=== PATIENT | female | born 1980 | race African-American/Black ===

== ENCOUNTER 2018-09-19 14:01 | Emergency (ER) | payer SELFPAY ==
[~2018-09-19] VITALS: Ht 177.8 cm; Wt 80.0 kg
[~2018-09-19 14:01] MED LIST: IBUP-1542 PO
[2018-09-19 14:09] VITALS: BP 167/65; PULSE 71; RESP 18; Ht 177.8 cm; Wt 80.0 kg
[2018-09-19] MEDS ORDERED: ONDANSETRON 4 MG INJ IV STA (15:02)
[2018-09-19] MEDS ORDERED: SOD CHLORIDE 0.9% 1,000 ML IV STA (15:02)
[2018-09-19] MEDS ORDERED: PROCHLORPERAZINE 10 MG INJ IV STA (15:02)
[2018-09-19] MEDS ORDERED: KETOROLAC 30 MG INJ IV STA (15:02)
[2018-09-19] MEDS ORDERED: IBUP-1542 PO (15:35)
[2018-09-19] MEDS ORDERED: ONDA4TAB14 PO (15:36)
--- NOTE | 2018-09-19 15:41 | ERD ---
ER Documentation Chief Complaint Chief Complaint GARCIA X 2 DAYS HPI This is a 38-year-old female with history of migraine headaches for the past 3 years presents to the ED complaining of an intermittent headache x3 days. Patient states symptoms started after a night of drinking. She states she has 6 out of 10 throbbing pain to her right temporal scalp which migrates to her left temporal scalp. She states she has had 3 episodes of nonbilious, nonbloody emesis. Pain is throbbing in nature. She states today's pain is very similar to her previous migraine headaches, but lasting longer. She has taken [id number] Tylenol and Aleve without any relief. Denies any head trauma. Denies any fevers or chills. Denies any neck pain or neck stiffness. Denies any focal weakness. ROS All systems reviewed and are negative except as per history of present illness. Medications Home Meds Active Scripts Ondansetron (Ondansetron Odt) 4 Mg Tab.rapdis, 4 MG PO Q6H PRN for NAUSEA AND/OR VOMITING, #10 TAB Prov:TORITOIGRANITA SAMANIEGO-C 09/19/18 Ibuprofen* (Motrin*) 600 Mg Tab, 600 MG PO Q6H PRN for PAIN AND OR ELEVATED TEMP, #30 TAB Prov:TORITOIGRIKIANANITA PA-C 09/19/18 Ibuprofen* (Motrin*) 600 Mg Tab, 600 MG PO Q6H PRN for PAIN AND OR ELEVATED TEMP, #30 TAB Prov:TONY TRINH MD 08/30/15 Allergies Allergies: Coded Allergies: No Known Allergy (Unverified , 11/03/15) PMhx/Soc History of Surgery: No Anesthesia Reaction: No Hx Neurological Disorder: No Hx Respiratory Disorders: No Hx Cardiac Disorders: No Hx Psychiatric Problems: No Hx Miscellaneous Medical Probl: No Hx Alcohol Use: Yes (SOCIAL) Hx Substance Use: No Hx Tobacco Use: No Smoking Status: Never smoker FmHx Family History: No diabetes Physical Exam Vitals Vital Signs Date Temp Pulse Resp B/P (MAP) Pulse Ox O2 O2 Flow FiO2 Time Delivery Rate 09/19/18 98.1 71 18 167/65 99 14:09 (99) Physical Exam Const: No acute distress Head: Atraumatic Eyes: Normal Conjunctiva ENT: Normal External Ears, Nose and Mouth. Neck: Full range of motion. No meningismus. Resp: Clear to auscultation bilaterally Cardio: Regular rate and rhythm, no murmurs Abd: Soft, non tender, non distended. Normal bowel sounds Skin: No petechiae or rashes Back: No midline or flank tenderness Ext: No cyanosis, or edema Neuro: M/S: Alert and oriented Face: EOMI, face and pharynx with normal sensation and function Motor: Normal strength throughout Sensation: Normal sensation throughout Speech: Normal Cerebel: Normal coordination Normal gait Psych: Normal Mood and Affect Results 24 hrs Current Medications Medications Dose Sig/Amy Start Time Status Last (Trade) Ordered Route PRN Stop Time Admin Dose Reason Admin Sodium 1,000 ml @ Q1H STAT 09/19/18 09/19/18 Chloride 1,000 mls/hr IV 15:02 09/19/18 15:26 16:01 10 mg ONCE STAT 09/19/18 DC Prochlorperaz IV 15:02 09/19/18 ine 15:04 (Compazine Inj) Ondansetron 4 mg ONCE STAT 09/19/18 DC 09/19/18 HCl (Zofran IV 15:02 09/19/18 15:26 Inj) 15:04 Ketorolac 15 mg ONCE STAT 09/19/18 DC 09/19/18 Tromethamine IV 15:02 09/19/18 15:26 (Toradol) 15:04 Procedures/MDM ED COURSE: The patient was given IV fluids, Zofran, Compazine, Toradol The medication was well tolerated and the patient had market improvement in symptoms. The patient remained stable throughout ED course. MEDICAL DECISION MAKIN-year-old female with history of migraine headaches presents with exacerbation of her headache after night of drinking alcohol. History and physical most consistent with primary headache. Vital signs are stable. No focal neurological deficits on physical exam. Clinical presentation not consistent with subarachnoid hemorrhage, epidural or subdural hematoma, IC mass, CVA, encephalitis or meningitis. Symptoms improved after IV fluids, Zofran, Compazine and Toradol. Patient was discharge home with close follow up and management by PCP in 48 hours. Strict return precautions discussed. PRESCRIPTIONS: Zofran, ibuprofen SPECIALIST FOLLOW UP RECOMMENDED: None Blood Pressure Assessment: Patient's blood pressure was elevated (>120/80) but appears stable without evidence of hypertension emergency or urgency. The patient was counseled about the risks of hypertension and urged to pursue outpatient monitoring and therapy within a week with their primary care physician. Departure Diagnosis: Primary Impression: Migraine headache Migraine type: unspecified Status migrainosus presence: without status migrainosus Intractability: not intractable Qualified Codes: G43.909 - Migraine, unspecified, not intractable, without status migrainosus Condition: Stable Patient Instructions: Migraines and Cluster Headaches Referrals: [facility] YOU HAVE RECEIVED A MEDICAL SCREENING EXAM AND THE RESULTS INDICATE THAT YOU DO NOT HAVE A CONDITION THAT REQUIRES URGENT TREATMENT IN THE EMERGENCY DEPARTMENT. FURTHER EVALUATION AND TREATMENT OF YOUR CONDITION CAN WAIT UNTIL YOU ARE SEEN IN YOUR DOCTORS OFFICE WITHIN THE NEXT 1-2 DAYS. IT IS YOUR RESPONSIBILITY TO MAKE AN APPOINTMENT FOR FOLOW-UP CARE. IF YOU HAVE A PRIMARY DOCTOR --you should call your primary doctor and schedule an appointment IF YOU DO NOT HAVE A PRIMARY DOCTOR YOU CAN CALL OUR PHYSICIAN REFERRAL HOTLINE AT IF YOU CAN NOT AFFORD TO SEE A PHYSICIAN YOU CAN CHOSE FROM THE FOLLOWING [facility] [address] [facility] [facility]. [facility] [address] [facility] [address] [facility] [address] [facility] [facility] [address] [facility]. [facility]. [address] [facility]. [facility] YOU HAVE RECEIVED A MEDICAL SCREENING EXAM AND THE RESULTS INDICATE THAT YOU DO NOT HAVE A CONDITION THAT REQUIRES URGENT TREATMENT IN THE EMERGENCY DEPARTMENT. FURTHER EVALUATION AND TREATMENT OF YOUR CONDITION CAN WAIT UNTIL YOU ARE SEEN IN YOUR DOCTORS OFFICE WITHIN THE NEXT 1-2 DAYS. IT IS YOUR RESPONSIBILITY TO MAKE AN APPOINTMENT FOR FOLOW-UP CARE. IF YOU HAVE A PRIMARY DOCTOR --you should call your primary doctor and schedule and appointment IF YOU DO NOT HAVE A PRIMARY DOCTOR YOU CAN CALL OUR PHYSICIAN REFERRAL HOTLINE AT . IF YOU CAN NOT AFFORD TO SEE A PHYSICIAN YOU CAN CHOSE FROM THE FOLLOWING [facility]: [facility] [address] [place] [address] [facility] [address] [place] [address] [facility] + [facility] [address] [place] [address] Additional Instructions: Avoid excessive drinking and that this could be the cause of your headaches. Call your primary care doctor TOMORROW for an appointment during the next 2-4 days and bring all the information and medications prescribed. If you do not have a primary care provider, you can follow-up with [facility]. If the symptoms get worse and your provider is unavailable, return to the Emergency Department immediately. ANITA GONZALEZ PA-C Sep 19, 2018 15:41
== END 2018-09-19 16:19 | disposition home or self-care (01) ==
LOC: FTE 14:01
DX: G43.909 Migraine, unspecified, not intractable, without status migrainosus (principal)
CPT/HCPCS: 96361; 96374; 96375; 99284; J0780; J1885; J2405; J7030